=== PATIENT | female | born 1980 ===

== ENCOUNTER 2016-08-09 12:23 | Inpatient (IN) | payer MEDICAID, SELFPAY ==
[~2016-08-09 12:23] MED LIST: Bupivacaine 0.25% 10 ML SDV ONE
[2016-08-09] MEDS ORDERED: Nalbuphine 20 MG/1 ML Amp IVPUSH PRN (12:48)
[2016-08-09] MEDS ORDERED: Sodium Chloride 0.9% 10 ML Syringe FLUSH PRN (12:48)
--- NOTE | 2016-08-09 12:58 | PCM.LDHP ---
L&D History of Present Illness - General Date of Service: 08/09/16 Admit Problem/Dx: Patient Status Order with Admit Dx/Problem 08/09/16 12:48 Patient Status [ADT] Routine Admission Diagnosis/Problem Admission Diagnosis/Problem Rupture of membranes with delay of delivery Source of Information: Patient History Limitations: Reports: No Limitations - History of Present Illness Introduction:: 35-year-old 0-1 SAHRA 08/29/16 at estimated gestational age of 37 weeks 1 day presented to labor and delivery with history of gush of fluid and continued leaking clear fluid since 10:30 AM this morning group B strep negative. Oh negative antibody screen negative initial hemoglobin and hematocrit 12/22/1613.0 /41.4, rubella immune, RPR nonreactive, urine culture mixed armand, and that B surface antigen negative, Chlamydia and GC probe negative on 05/29/17 hemoglobin hematocrit level but 7/34.9 platelets 270,000 program given OB glucose screen 107, group B strep 07/26/16 negative Severity: Mild Pain Score: 2 Improves with: Reports: None Worsens with: Reports: None Associated Symptoms: Reports: N - Related Data Allergies/Adverse Reactions: Allergies Allergy/AdvReac Type Severity Reaction Status Date / Time No Known Allergies Allergy Verified 03/13/15 10:17 Home Medications: Home Meds . [No Known Home Meds] 03/13/15 [History] Past Medical History - Past Health History Medical/Surgical History: Denies Medical/Surgical History : 4 Para: 1 (1021) Social & Family History - Family History Family Medical History: Noncontributory - Tobacco Use Smoking Status *Q: Never Smoker - Recreational Drug Use Recreational Drug Use: No H&P Review of Systems - Review of Systems: Review Of Systems: See Below General: Reports: No Symptoms HEENT: Reports: No Symptoms Pulmonary: Reports: No Symptoms Cardiovascular: Reports: No Symptoms Gastrointestinal: Reports: No Symptoms Genitourinary: Reports: No Symptoms Musculoskeletal: Reports: No Symptoms Skin: Reports: No Symptoms Psychiatric: Reports: No Symptoms Neurological: Reports: No Symptoms Hematologic/Lymphatic: Reports: No Symptoms Immunologic: Reports: No Symptoms L&D Exam - Exam Exam: See Below - Vital Signs Weight: 145 lb - OB Specific Contraction Intensity: Mild Movement: Active Heart Tones: Present Heart Tones per Min: 135 Heart Rate (FHR) Variability: Moderate (6-25 bmp) Presentation: Vertex - Galan Score Galan Score Cervix Position: Posterior Galan Score Consistency: Soft Galan Score Effacement: 0-30% Galan Score Dilation: 1-2 cm Galan Score 's Station: -2 Galan Score Total: 4 - Exam General: Alert, Oriented HEENT: Mucosa Moist & [place] Neck: Supple, Trachea Midline Lungs: Clear to Auscultation, Normal Respiratory Effort Cardiovascular: Regular Rate, Regular Rhythm Abdomen: Normal Bowel Sounds, Soft, Pelvis Stable Genitourinary: Normal external exam Extremities: Normal Inspection Skin: Warm, Dry, Intact Neurological: Reflexes Equal Bilateral Psychiatric: Alert, Normal Affect, Normal Mood - Problem List (1) 37 weeks gestation of SNOMED Code(s): 03057888 ICD Code: Z3A.37 - 37 WEEKS GESTATION OF Status: Acute Current Visit: Yes (2) Premature rupture of membranes (PROM), onset of labor within 24 hours, antepartum SNOMED Code(s): 604912610 ICD Code: O42.019 - PRETRM PABLO ROM, ONSET LABOR W/N 24 HOURS OF RUPT, UNSP TRI Status: Acute Current Visit: Yes Problem List Initiated/Reviewed/Updated: No Orders Last 24hrs: Active Orders 24 hr Category Date Time Status Patient Status [ADT] Routine ADT 08/09/16 12:48 Ordered Activity as Tolerated [RC] PFP Care 08/09/16 12:48 Ordered Communication Order [RC] ASDIRECTED Care 08/09/16 12:48 Ordered Heart Tones [RC] ASDIRECTED Care 08/09/16 12:49 Ordered Height and Weight [RC] UPON Care 08/09/16 12:48 Ordered Notify Provider [RC] PFP Care 08/09/16 12:48 Ordered Notify Provider [RC] PRN Care 08/09/16 12:48 Ordered Peripheral IV Care [RC] . DIRECTED Care 08/09/16 12:49 Ordered Urinary Catheter Assessment [RC] ASDIRECTED Care 08/09/16 12:48 Ordered Vital Signs [RC] PER UNIT ROUTINE Care 08/09/16 12:48 Ordered Clear Liquid Diet [DIET] Diet 08/09/16 Lunch Ordered CBC WITH AUTO DIFF [HEME] Stat Lab 08/09/16 12:48 Ordered TYPE AND SCREEN [BBK] Stat Lab 08/09/16 12:48 Ordered Lactated Ringers [Ringers, Lactated] 1,000 ml Med 08/09/16 13:00 Ordered IV ASDIRECTED Misoprostol [Cytotec] Med 08/09/16 13:00 Ordered 25 mcg PO Q3H Nalbuphine [Nubain] Med 08/09/16 12:48 Ordered 10 mg IVPUSH Q2H PRN Oxytocin/Lactated Ringers [Pitocin in LR 10 Units/1,000 Med 08/09/16 13:00 Ordered ML] 10 unit in 1,000 ml IV ASDIRECTED Oxytocin/Lactated Ringers [Pitocin in LR 10 Units/1,000 Med 08/09/16 13:00 Ordered ML] 10 unit in 1,000 ml IV TITRATE Sodium Chloride 0.9% [Saline Flush] Med 08/09/16 12:48 Ordered 10 ml FLUSH ASDIRECTED PRN Electronic Heart Tones Ext w TOCO [WOMSER] Oth 08/09/16 12:48 Ordered Routine Electronic Heart Tones Internal [WOMSER] Per Unit Ot 08/09/16 12:48 Ordered Routine Peripheral IV Insertion Adult [OM.PC] Routine Oth 08/09/16 12:48 Ordered Resuscitation Status Routine Resus Stat 08/09/16 12:48 Ordered Medication Orders Lactated Ringer's (Ringers, Lactated) 1,000 mls @ 100 mls/hr IV ASDIRECTED CECILIO Oxytocin/Lactated Ringer's (Pitocin In Lr 10 Units/1,000 Ml) 10 unit in 1,000 mls @ 500 mls/hr IV ASDIRECTED CECILIO Misoprostol (Cytotec) 25 mcg PO Q3H CECILIO Stop: 08/09/16 19:01 Nalbuphine HCl (Nubain) 10 mg IVPUSH Q2H PRN PRN Reason: Pain (moderate 4-6) Sodium Chloride (Saline Flush) 10 ml FLUSH ASDIRECTED PRN PRN Reason: Keep Vein Open Assessment/Plan Comment:: estimated gestational age 37 weeks 1 day spontaneous rupture membranes 10:30 AM Sunday08/09/16 Admit for labor and delivery
[2016-08-09] MEDS ORDERED: Oxytocin/Lactated Ringers 10 UNIT/1,000 ML BAG IV SCH ×2 (13:00)
[2016-08-09] MEDS: Misoprostol 25 MCG (1/4 of 100 MCG) Tab PO SCH ×3 (13:29→20:23)
--- NOTE | 2016-08-09 19:16 | PCM.SN ---
- Free Text/Narrative Note: Cervix 2/50/soft/posterior. Vertex now at 0 station. Wanting epidural. Will start Oxytocin rather than third cytotec.
[2016-08-09] MEDS: Lactated Ringers 1,000 ML IV SCH ×3 (19:22→22:22)
[2016-08-09] MEDS ORDERED: diphenhydrAMINE 50 MG/ML SDV IVPUSH PRN (19:41)
[2016-08-09] MEDS ORDERED: fentaNYL 100 MCG/2 ML SDV EPIDUR PRN (19:41)
[2016-08-09] MEDS ORDERED: ePHEDrine 50 MG/ML SDV IVPUSH PRN (19:41)
[2016-08-09] MEDS ORDERED: Bupivacaine/fentaNYL/NS 100 ML Bag EPIDUR SCH (19:45)
--- NOTE | 2016-08-09 20:05 | PCM.PREANE ---
Preanesthetic Assessment - Anesthesia/Transfusion/Family Hx Anesthesia History: Prior Anesthesia Without Reaction Family History of Anesthesia Reaction: No Transfusion History: No Prior Transfusion(s) - Review of Systems General: No Symptoms Pulmonary: No Symptoms Cardiovascular: No Symptoms Gastrointestinal: No symptoms, Vomiting (last week) Neurological: No Symptoms Other: Reports: None, Anxiety (5 years ago) - Physical Assessment O2 Sat by Pulse Oximetry: 97 Respiratory Rate: 18 Vital Signs: Last Vital Signs Temp 99.0 F 08/09/16 12:48 Pulse 120 H 08/09/16 12:48 Resp 18 08/09/16 12:48 BP 134/82 08/09/16 12:48 Pulse Ox 97 08/09/16 12:48 Height: 5 ft 3 in Weight: 76.748 kg ASA Class: 2 Mental Status: Alert & Oriented x3 Airway Class: Mallampati = 1 Dentition: Reports: Normal Dentition Thyro-Mental Finger Breadths: 3 Mouth Opening Finger Breadths: 3 ROM/Head Extension: Full Lungs: Clear to auscultation, Normal respiratory effort Cardiovascular: Regular Rate, Regular Rhythm - Lab Values: Laboratory Last Values WBC 9.70 K/mm3 (3.98-10.04) 08/09/16 13:20 RBC 3.76 M/mm3 (3.98-5.22) L 08/09/16 13:20 Hgb 11.2 gm/L (11.2-15.7) 08/09/16 13:20 Hct 34.4 % (34.1-44.9) 08/09/16 13:20 MCV 91.5 fl (79.4-94.8) 08/09/16 13:20 MCH 29.8 pg (25.6-32.2) 08/09/16 13:20 MCHC 32.6 g/dl (32.2-35.5) 08/09/16 13:20 RDW Std Deviation 45.1 fL (36.4-46.3) 08/09/16 13:20 Plt Count 242 K/mm3 (182-369) 08/09/16 13:20 MPV 12.8 fl (9.4-12.3) H 08/09/16 13:20 Neut % (Auto) 69.4 % (34.0-71.1) 08/09/16 13:20 Lymph % (Auto) 23.4 % (19.3-51.7) 08/09/16 13:20 [place] % (Auto) 5.9 % (4.7-12.5) 08/09/16 13:20 Eos % (Auto) 0.2 (0.7-5.8) L 08/09/16 13:20 Baso % (Auto) 0.1 % (0.1-1.2) 08/09/16 13:20 Neut # (Auto) 6.73 K/mm3 (1.56-6.13) H 08/09/16 13:20 Lymph # (Auto) 2.27 K/mm3 (1.18-3.74) 08/09/16 13:20 [place] # (Auto) 0.57 K/mm3 (0.24-0.36) H 08/09/16 13:20 Eos # (Auto) 0.02 K/mm3 (0.04-0.36) L 08/09/16 13:20 Baso # (Auto) 0.01 K/mm3 (0.01-0.08) 08/09/16 13:20 Blood Type O NEGATIVE 08/09/16 13:20 Gel Antibody Screen Positive 08/09/16 13:20 - Allergies Allergies/Adverse Reactions: Allergies Allergy/AdvReac Type Severity Reaction Status Date / Time No Known Allergies Allergy Verified 08/09/16 19:44 - Blood Blood Available: No - Acknowledgements Anesthesia Type Planned: Epidural Pt an Appropriate Candidate for the Planned Anesthesia: Yes Alternatives and Risks of Anesthesia Discussed w Pt/Guardian: Yes Pt/Guardian Understands and Agrees with Anesthesia Plan: Yes PreAnesthesia Questionnaire - Past Health History Medical/Surgical History: Denies Medical/Surgical History Cardiovascular History: Reports: None Respiratory History: Reports: None Gastrointestinal History: Reports: GERD (with preg) [employer] History: Reports: , Spontaneous , Other (See Below) : 4 (37 weeks) Para: 1 Other OB/BYN History: cyst on ovary - Infectious Disease History Infectious Disease History: Reports: TB - SUBSTANCE USE Smoking Status *Q: Never Smoker Tobacco Use Within Last Twelve Months: No Second Hand Smoke Exposure: No Days Per Week of Alcohol Use: 0 Recreational Drug Use History: No - HOME MEDS Home Medications: Home Meds Pnv No.122/Iron/Folic Acid [ Multi Tablet] 1 each PO DAILY 08/09/16 [ History] - CURRENT (IN HOUSE) MEDS Current Meds: Current Medications Diphenhydramine HCl (Benadryl) 25 mg IVPUSH Q6H PRN PRN Reason: pruritis Ephedrine Sulfate (Ephedrine Sulfate) 5 mg IVPUSH ASDIRECTED PRN PRN Reason: Hypotension Fentanyl (Sublimaze) 100 mcg EPIDUR Q3H PRN PRN Reason: Pain Fentanyl/Bupivacaine HCl (Fentanyl/Bupivacaine/Ns 2 Mcg-0.125% 100 Ml) 100 ml EPIDUR ASDIRECTED CECILIO Lactated Ringer's (Ringers, Lactated) 1,000 mls @ 100 mls/hr IV ASDIRECTED CECILIO Last Admin: 08/09/16 19:22 Dose: 100 mls/hr Oxytocin/Lactated Ringer's (Pitocin In Lr 10 Units/1,000 Ml) 10 unit in 1,000 mls @ 500 mls/hr IV ASDIRECTED CECILIO Oxytocin/Lactated Ringer's (Pitocin In Lr 10 Units/1,000 Ml) 10 unit in 1,000 mls @ 12 mls/hr IV TITRATE CECILIO; 2 MUNITS/MIN PRN Reason: Protocol Nalbuphine HCl (Nubain) 10 mg IVPUSH Q2H PRN PRN Reason: Pain (moderate 4-6) Sodium Chloride (Saline Flush) 10 ml FLUSH ASDIRECTED PRN PRN Reason: Keep Vein Open Discontinued Medications Misoprostol (Cytotec) 25 mcg PO Q3H CECILIO Stop: 08/09/16 19:01 Last Admin: 08/09/16 16:23 Dose: 25 mcg
--- NOTE | 2016-08-10 00:29 | PCM.DEL ---
L & D Note - General Info Date of Service: 08/10/16 - Delivery Note Labor: spontaneous, augmented by oxytocin Delivery Outcome: Livebirth (Female liveborn 08/10/16 00 15 hours JUAN Apgars 7/9 weight 20/8/20 grams/6 pounds 3.5 ounces) Infant Delivery Method: Spontaneous Vaginal Delivery Delivery Mode: Spontaneous Presentation: Right Occiput Anterior (JUAN) Nuchal Cord: None Prep: Povidone-Iodine (Betadine Anesthesia Type: None Amniotic Fluid Description: Clear Episiotomy Type: None Laceration: none Placenta: intact, spontaneous (08/10/16 00 18 hours central cord insertion Bro examined intact and discarded) Cord: 3 vessels Resuscitation Needed: No [place]: Suctioned, Bulb Syringe, Stimulated, Warmed, Golden Used, Warmer Used Provider: Geoff Monique Score 1 min: 7 Score 5 min: 9 - Patient Data Vitals - most recent: Last Vital Signs Temp 99.0 F 08/09/16 12:48 Pulse 120 H 08/09/16 12:48 Resp 18 08/09/16 20:04 BP 134/82 08/09/16 12:48 Pulse Ox 97 08/09/16 20:04 Weight - most recent: 169 lb 3.2 oz Lab Results last 24 hrs: Laboratory Results - last 24 hr 08/09/16 08/09/16 Range/Units 13:20 13:20 WBC 9.70 (3.98-10.04) K/mm3 RBC 3.76 L (3.98-5.22) M/mm3 Hgb 11.2 (11.2-15.7) gm/L Hct 34.4 (34.1-44.9) % MCV 91.5 (79.4-94.8) fl MCH 29.8 (25.6-32.2) pg MCHC 32.6 (32.2-35.5) g/dl RDW Std Deviation 45.1 (36.4-46.3) fL Plt Count 242 (182-369) K/mm3 MPV 12.8 H (9.4-12.3) fl Neut % (Auto) 69.4 (34.0-71.1) % Lymph % (Auto) 23.4 (19.3-51.7) % [place] % (Auto) 5.9 (4.7-12.5) % Eos % (Auto) 0.2 L (0.7-5.8) Baso % (Auto) 0.1 (0.1-1.2) % Neut # (Auto) 6.73 H (1.56-6.13) K/mm3 Lymph # (Auto) 2.27 (1.18-3.74) K/mm3 [place] # (Auto) 0.57 H (0.24-0.36) K/mm3 Eos # (Auto) 0.02 L (0.04-0.36) K/mm3 Baso # (Auto) 0.01 (0.01-0.08) K/mm3 Blood Type O NEGATIVE Gel Antibody Screen Positive Med Orders - Current: Current Medications Diphenhydramine HCl (Benadryl) 25 mg IVPUSH Q6H PRN PRN Reason: pruritis Ephedrine Sulfate (Ephedrine Sulfate) 5 mg IVPUSH ASDIRECTED PRN PRN Reason: Hypotension Fentanyl (Sublimaze) 100 mcg EPIDUR Q3H PRN PRN Reason: Pain Last Admin: 08/09/16 20:06 Dose: 100 mcg Fentanyl/Bupivacaine HCl (Fentanyl/Bupivacaine/Ns 2 Mcg-0.125% 100 Ml) 100 ml EPIDUR ASDIRECTED CECILIO Last Admin: 08/09/16 20:07 Dose: 100 ml Lactated Ringer's (Ringers, Lactated) 1,000 mls @ 100 mls/hr IV ASDIRECTED CECILIO Last Admin: 08/09/16 22:22 Dose: 100 mls/hr Oxytocin/Lactated Ringer's (Pitocin In Lr 10 Units/1,000 Ml) 10 unit in 1,000 mls @ 500 mls/hr IV ASDIRECTED CECILIO Oxytocin/Lactated Ringer's (Pitocin In Lr 10 Units/1,000 Ml) 10 unit in 1,000 mls @ 12 mls/hr IV TITRATE CECILIO; 2 MUNITS/MIN PRN Reason: Protocol Last Titration: 08/09/16 22:25 Dose: 5 munits/min, 30 mls/hr Nalbuphine HCl (Nubain) 10 mg IVPUSH Q2H PRN PRN Reason: Pain (moderate 4-6) Sodium Chloride (Saline Flush) 10 ml FLUSH ASDIRECTED PRN PRN Reason: Keep Vein Open Discontinued Medications Misoprostol (Cytotec) 25 mcg PO Q3H CECILIO Stop: 08/09/16 19:01 Last Admin: 08/09/16 20:23 Dose: Not Given - Problem List & Annotations (1) 37 weeks gestation of SNOMED Code(s): 80495091 Code(s): Z3A.37 - 37 WEEKS GESTATION OF Status: Acute Current Visit: Yes (2) Premature rupture of membranes (PROM), onset of labor within 24 hours, antepartum SNOMED Code(s): 657843445 Code(s): O42.019 - PRETRM PABLO ROM, ONSET LABOR W/N 24 HOURS OF RUPT, UNSP TRI Status: Acute Current Visit: Yes - Problem List Review Problem List Initiated/Reviewed/Updated: No - My Orders Last 24 Hours: My Active Orders 08/09/16 12:48 Patient Status [ADT] Routine Activity as Tolerated [RC] PFP Communication Order [RC] ASDIRECTED Notify Provider [RC] PFP Notify Provider [RC] PRN Urinary Catheter Assessment [RC] ASDIRECTED Vital Signs [RC] PER UNIT ROUTINE Nalbuphine [Nubain] 10 mg IVPUSH Q2H PRN Sodium Chloride 0.9% [Saline Flush] 10 ml FLUSH ASDIRECTED PRN Electronic Heart Tones Ext w TOCO [WOMSER] Routine Electronic Heart Tones Internal [WOMSER] Per Unit Routine Peripheral IV Insertion Adult [OM.PC] Routine Resuscitation Status Routine 08/09/16 12:49 Peripheral IV Care [RC] . DIRECTED 08/09/16 13:00 Lactated Ringers [Ringers, Lactated] 1,000 ml IV ASDIRECTED Oxytocin/Lactated Ringers [Pitocin in LR 10 Units/1,000 ML] 10 unit in 1,000 ml IV ASDIRECTED Oxytocin/Lactated Ringers [Pitocin in LR 10 Units/1,000 ML] 10 unit in 1,000 ml IV TITRATE 08/09/16 13:20 ANTIBODY IDENTIFICATION [BBK] Stat TYPE AND SCREEN [BBK] Stat 08/09/16 14:25 Consult to Cargo Checker [CONS] Routine 08/09/16 Lunch Clear Liquid Diet [DIET] - Plan Plan:: estimated gestational age 37 weeks 1 day spontaneous rupture membranes 10:30 AM Sunday08/09/16 Admit for labor and delivery
[2016-08-10] MEDS ORDERED: Witch Hazel Medicated Pads 100/Jar TOP PRN (00:36)
[2016-08-10] MEDS ORDERED: Benzocaine/Menthol 20%-0.5% Spray 56 GM Canister TOP PRN (00:36)
[2016-08-10] MEDS ORDERED: Docusate Sodium 100 MG Cap PO PRN (00:36)
[2016-08-10] MEDS ORDERED: Acetaminophen 325 MG Tab PO PRN (00:36)
[2016-08-10] MEDS ORDERED: Lanolin 100% Cream 7 GM Tube TOP PRN (00:36)
[2016-08-10] MEDS: Ibuprofen 600 MG Tab PO PRN ×3 (01:36→15:02)
[2016-08-10] MEDS ORDERED: Hydrocortisone 1% Crm 30 GM Tube TOP PRN (15:05)
--- NOTE | 2016-08-11 06:45 | PCM.DCSUM1 ---
Discharge Summary - Hospital Course Free Text/Narrative:: [facility], [place] LIVE L/D Delivery Note Patient Name: EUNICE ALVAREZ Date of : 80 Patient Status: Inpatient Attending Provider: Geoff Monique Date: 08/10/16 00:25 Initialization Date: 08/10/16 00:25 L & D Note - General Info Date of Service: 08/10/16 - Delivery Note Labor: spontaneous, augmented by oxytocin Delivery Outcome: Livebirth (Female liveborn 08/10/16 15 hours JUAN Apgars 7/9 weight 20/8/20 grams/6 pounds 3.5 ounces) Infant Delivery Method: Spontaneous Vaginal Delivery Infant Delivery Mode: Spontaneous Presentation: Right Occiput Anterior (JUAN) Nuchal Cord: None Prep: Povidone-Iodine (Betadine Anesthesia Type: None Amniotic Fluid Description: Clear Episiotomy Type: None Laceration: none Placenta: intact, spontaneous (08/10/16 00 18 hours central cord insertion Bro examined intact and discarded) Cord: 3 vessels Resuscitation Needed: No Herrick: Suctioned, Bulb Syringe, Stimulated, Warmed, [place] Used, Warmer Used Provider: Geoff Monique Score 1 min: 7 Score 5 min: 9 - Patient Data Vitals - most recent: Last Vital Signs Temp 99.0 F 08/09/16 12:48 Pulse 120 H 08/09/16 12:48 Resp 18 08/09/16 20:04 BP 134/82 08/09/16 12:48 Pulse Ox 97 08/09/16 20:04 Weight - most recent: 169 lb 3.2 oz Lab Results last 24 hrs: Laboratory Results - last 24 hr 08/09/16 08/09/16 Range/Units 13:20 13:20 WBC 9.70 (3.98-10.04) K/mm3 RBC 3.76 L (3.98-5.22) M/mm3 Hgb 11.2 (11.2-15.7) gm/L Hct 34.4 (34.1-44.9) % MCV 91.5 (79.4-94.8) fl MCH 29.8 (25.6-32.2) pg MCHC 32.6 (32.2-35.5) g/dl RDW Std Deviation 45.1 (36.4-46.3) fL Plt Count 242 (182-369) K/mm3 MPV 12.8 H (9.4-12.3) fl Neut % (Auto) 69.4 (34.0-71.1) % Lymph % (Auto) 23.4 (19.3-51.7) % [place] % (Auto) 5.9 (4.7-12.5) % Eos % (Auto) 0.2 L (0.7-5.8) Baso % (Auto) 0.1 (0.1-1.2) % Neut # (Auto) 6.73 H (1.56-6.13) K/mm3 Lymph # (Auto) 2.27 (1.18-3.74) K/mm3 [place] # (Auto) 0.57 H (0.24-0.36) K/mm3 Eos # (Auto) 0.02 L (0.04-0.36) K/mm3 Baso # (Auto) 0.01 (0.01-0.08) K/mm3 Blood Type O NEGATIVE Gel Antibody Screen Positive Med Orders - Current: Current Medications Diphenhydramine HCl (Benadryl) 25 mg IVPUSH Q6H PRN PRN Reason: pruritis Ephedrine Sulfate (Ephedrine Sulfate) 5 mg IVPUSH ASDIRECTED PRN PRN Reason: Hypotension Fentanyl (Sublimaze) 100 mcg EPIDUR Q3H PRN PRN Reason: Pain Last Admin: 08/09/16 20:06 Dose: 100 mcg Fentanyl/Bupivacaine HCl (Fentanyl/Bupivacaine/Ns 2 Mcg-0.125% 100 Ml) 100 ml EPIDUR ASDIRECTED CECILIO Last Admin: 08/09/16 20:07 Dose: 100 ml Lactated Ringer's (Ringers, Lactated) 1,000 mls @ 100 mls/hr IV ASDIRECTED CECILIO Last Admin: 08/09/16 22:22 Dose: 100 mls/hr Oxytocin/Lactated Ringer's (Pitocin In Lr 10 Units/1,000 Ml) 10 unit in 1,000 mls @ 500 mls/hr IV ASDIRECTED CECILIO Oxytocin/Lactated Ringer's (Pitocin In Lr 10 Units/1,000 Ml) 10 unit in 1,000 mls @ 12 mls/hr IV TITRATE CECILIO; 2 MUNITS/MIN PRN Reason: Protocol Last Titration: 08/09/16 22:25 Dose: 5 munits/min, 30 mls/hr Nalbuphine HCl (Nubain) 10 mg IVPUSH Q2H PRN PRN Reason: Pain (moderate 4-6) Sodium Chloride (Saline Flush) 10 ml FLUSH ASDIRECTED PRN PRN Reason: Keep Vein Open Discontinued Medications Misoprostol (Cytotec) 25 mcg PO Q3H CECILIO Stop: 08/09/16 19:01 Last Admin: 08/09/16 20:23 Dose: Not Given - Problem List & Annotations (1) 37 weeks gestation of SNOMED Code(s): 41465419 Code(s): Z3A.37 - 37 WEEKS GESTATION OF Status: Acute Current Visit: Yes (2) Premature rupture of membranes (PROM), onset of labor within 24 hours, antepartum SNOMED Code(s): 233633692 Code(s): O42.019 - PRETRM PABLO ROM, ONSET LABOR W/N 24 HOURS OF RUPT, UNSP TRI Status: Acute Current Visit: Yes - Problem List Review Problem List Initiated/Reviewed/Updated: No - My Orders Last 24 Hours: My Active Orders 08/09/16 12:48 Patient Status [ADT] Routine Activity as Tolerated [RC] PFP Communication Order [RC] ASDIRECTED Notify Provider [RC] PFP Notify Provider [RC] PRN Urinary Catheter Assessment [RC] ASDIRECTED Vital Signs [RC] PER UNIT ROUTINE Nalbuphine [Nubain] 10 mg IVPUSH Q2H PRN Sodium Chloride 0.9% [Saline Flush] 10 ml FLUSH ASDIRECTED PRN Electronic Heart Tones Ext w TOCO [WOMSER] Routine Electronic Heart Tones Internal [WOMSER] Per Unit Routine Peripheral IV Insertion Adult [OM.PC] Routine Resuscitation Status Routine 08/09/16 12:49 Peripheral IV Care [RC] . DIRECTED 08/09/16 13:00 Lactated Ringers [Ringers, Lactated] 1,000 ml IV ASDIRECTED Oxytocin/Lactated Ringers [Pitocin in LR 10 Units/1,000 ML] 10 unit in 1,000 ml IV ASDIRECTED Oxytocin/Lactated Ringers [Pitocin in LR 10 Units/1,000 ML] 10 unit in 1,000 ml IV TITRATE 08/09/16 13:20 ANTIBODY IDENTIFICATION [BBK] Stat TYPE AND SCREEN [BBK] Stat 08/09/16 14:25 Consult to Ticket Sales Agent [CONS] Routine 08/09/16 Lunch Clear Liquid Diet [DIET] - Plan Plan:: estimated gestational age 37 weeks 1 day spontaneous rupture membranes 10:30 AM Sunday08/09/16 Admit for labor and delivery HPI Initial Comments: [facility], [place] LIVE L/D Delivery Note Patient Name: EUNICE ALVAREZ Date of : 80 Patient Status: Inpatient Attending Provider: Geoff Monique Date: 08/10/16 00:25 Initialization Date: 08/10/16 00:25 L & D Note - General Info Date of Service: 08/10/16 - Delivery Note Labor: spontaneous, augmented by oxytocin Delivery Outcome: Livebirth (Female liveborn 08/10/16 00 15 hours JUAN Apgars 7/9 weight 20/8/20 grams/6 pounds 3.5 ounces) Delivery Method: Spontaneous Vaginal Delivery Infant Delivery Mode: Spontaneous Presentation: Right Occiput Anterior (JUAN) Nuchal Cord: None Prep: Povidone-Iodine (Betadine Anesthesia Type: None Amniotic Fluid Description: Clear Episiotomy Type: None Laceration: none Placenta: intact, spontaneous (08/10/16 00 18 hours central cord insertion Bro examined intact and discarded) Cord: 3 vessels Resuscitation Needed: No Herrick: Suctioned, Bulb Syringe, Stimulated, Warmed, [place] Used, Warmer Used Provider: Geoff Monique Score 1 min: 7 Score 5 min: 9 - Patient Data Vitals - most recent: Last Vital Signs Temp 99.0 F 08/09/16 12:48 Pulse 120 H 08/09/16 12:48 Resp 18 08/09/16 20:04 BP 134/82 08/09/16 12:48 Pulse Ox 97 08/09/16 20:04 Weight - most recent: 169 lb 3.2 oz Lab Results last 24 hrs: Laboratory Results - last 24 hr 08/09/16 08/09/16 Range/Units 13:20 13:20 WBC 9.70 (3.98-10.04) K/mm3 RBC 3.76 L (3.98-5.22) M/mm3 Hgb 11.2 (11.2-15.7) gm/L Hct 34.4 (34.1-44.9) % MCV 91.5 (79.4-94.8) fl MCH 29.8 (25.6-32.2) pg MCHC 32.6 (32.2-35.5) g/dl RDW Std Deviation 45.1 (36.4-46.3) fL Plt Count 242 (182-369) K/mm3 MPV 12.8 H (9.4-12.3) fl Neut % (Auto) 69.4 (34.0-71.1) % Lymph % (Auto) 23.4 (19.3-51.7) % [place] % (Auto) 5.9 (4.7-12.5) % Eos % (Auto) 0.2 L (0.7-5.8) Baso % (Auto) 0.1 (0.1-1.2) % Neut # (Auto) 6.73 H (1.56-6.13) K/mm3 Lymph # (Auto) 2.27 (1.18-3.74) K/mm3 [place] # (Auto) 0.57 H (0.24-0.36) K/mm3 Eos # (Auto) 0.02 L (0.04-0.36) K/mm3 Baso # (Auto) 0.01 (0.01-0.08) K/mm3 Blood Type O NEGATIVE Gel Antibody Screen Positive Med Orders - Current: Current Medications Diphenhydramine HCl (Benadryl) 25 mg IVPUSH Q6H PRN PRN Reason: pruritis Ephedrine Sulfate (Ephedrine Sulfate) 5 mg IVPUSH ASDIRECTED PRN PRN Reason: Hypotension Fentanyl (Sublimaze) 100 mcg EPIDUR Q3H PRN PRN Reason: Pain Last Admin: 08/09/16 20:06 Dose: 100 mcg Fentanyl/Bupivacaine HCl (Fentanyl/Bupivacaine/Ns 2 Mcg-0.125% 100 Ml) 100 ml EPIDUR ASDIRECTED CECILIO Last Admin: 08/09/16 20:07 Dose: 100 ml Lactated Ringer's (Ringers, Lactated) 1,000 mls @ 100 mls/hr IV ASDIRECTED CECILIO Last Admin: 08/09/16 22:22 Dose: 100 mls/hr Oxytocin/Lactated Ringer's (Pitocin In Lr 10 Units/1,000 Ml) 10 unit in 1,000 mls @ 500 mls/hr IV ASDIRECTED CECILIO Oxytocin/Lactated Ringer's (Pitocin In Lr 10 Units/1,000 Ml) 10 unit in 1,000 mls @ 12 mls/hr IV TITRATE CECILIO; 2 MUNITS/MIN PRN Reason: Protocol Last Titration: 08/09/16 22:25 Dose: 5 munits/min, 30 mls/hr Nalbuphine HCl (Nubain) 10 mg IVPUSH Q2H PRN PRN Reason: Pain (moderate 4-6) Sodium Chloride (Saline Flush) 10 ml FLUSH ASDIRECTED PRN PRN Reason: Keep Vein Open Discontinued Medications Misoprostol (Cytotec) 25 mcg PO Q3H CECILIO Stop: 08/09/16 19:01 Last Admin: 08/09/16 20:23 Dose: Not Given - Problem List & Annotations (1) 37 weeks gestation of SNOMED Code(s): 38167100 Code(s): Z3A.37 - 37 WEEKS GESTATION OF Status: Acute Current Visit: Yes (2) Premature rupture of membranes (PROM), onset of labor within 24 hours, antepartum SNOMED Code(s): 177355630 Code(s): O42.019 - PRETRM PABLO ROM, ONSET LABOR W/N 24 HOURS OF RUPT, UNSP TRI Status: Acute Current Visit: Yes - Problem List Review Problem List Initiated/Reviewed/Updated: No - My Orders Last 24 Hours: My Active Orders 08/09/16 12:48 Patient Status [ADT] Routine Activity as Tolerated [RC] PFP Communication Order [RC] ASDIRECTED Notify Provider [RC] PFP Notify Provider [RC] PRN Urinary Catheter Assessment [RC] ASDIRECTED Vital Signs [RC] PER UNIT ROUTINE Nalbuphine [Nubain] 10 mg IVPUSH Q2H PRN Sodium Chloride 0.9% [Saline Flush] 10 ml FLUSH ASDIRECTED PRN Electronic Heart Tones Ext w TOCO [WOMSER] Routine Electronic Heart Tones Internal [WOMSER] Per Unit Routine Peripheral IV Insertion Adult [OM.PC] Routine Resuscitation Status Routine 08/09/16 12:49 Peripheral IV Care [RC] . DIRECTED 08/09/16 13:00 Lactated Ringers [Ringers, Lactated] 1,000 ml IV ASDIRECTED Oxytocin/Lactated Ringers [Pitocin in LR 10 Units/1,000 ML] 10 unit in 1,000 ml IV ASDIRECTED Oxytocin/Lactated Ringers [Pitocin in LR 10 Units/1,000 ML] 10 unit in 1,000 ml IV TITRATE 08/09/16 13:20 ANTIBODY IDENTIFICATION [BBK] Stat TYPE AND SCREEN [BBK] Stat 08/09/16 14:25 Consult to Ticket Sales Agent [CONS] Routine 08/09/16 Lunch Clear Liquid Diet [DIET] - Plan Plan:: estimated gestational age 37 weeks 1 day spontaneous rupture membranes 10:30 AM Sunday08/09/16 Admit for labor and delivery Brief History: [facility], [place] LIVE . L/D Delivery Note. [facility]: [id number]. Date of : Patient Status: Inpatient. Attending Provider: Geoff Monique Number: [id number]. Date: 08/10/16 00:25Initialization Date: 08/10/16 00:25. L & D Note. - General Info. Date of Service: 08/10/16. - Delivery Note. Labor: spontaneous, augmented by oxytocin. Delivery Outcome: Livebirth (Female liveborn 08/10/16 00 15 hours JUAN Apgars 7/9 weight 20/8/20 grams/6 pounds 3.5 ounces). Infant Delivery Method: Spontaneous Vaginal Delivery. Infant Delivery Mode: Spontaneous. Presentation: Right Occiput Anterior ( JUAN). Nuchal Cord: None. Prep: Povidone-Iodine (Betadine. Anesthesia Type: None. Amniotic Fluid Description: Clear. Episiotomy Type: None. Laceration: none. Placenta: intact, spontaneous (08/10/16 00 18 hours central cord insertion Bro examined intact and discarded). Cord: 3 vessels. Resuscitation Needed: No. Herrick: Suctioned, Bulb Syringe, Stimulated, Warmed , [place] Used, Warmer Used. Provider: Geoff Monique. Score 1 min: 7. Score 5 min: 9. - Patient Data. Vitals - most recent: Last Vital Signs. Temp 99.0 F 08/09/16 12:48. Pulse 120 H 08/09/16 12:48. Resp 18 08/09/16 20:04. BP 134/82 08/09/16 12:48. Pulse Ox 97 08/09/16 20: 04. Weight - most recent: 169 lb 3.2 oz. Lab Results last 24 hrs: Laboratory Results - last 24 hr. 08/09/1705/28/17Range/Units. 13:2013:20. WBC 9.70 (3.98 -10.04) K/mm3. RBC 3.76 L (3.98-5.22) M/mm3. Hgb 11.2 (11.2-15.7) gm/L. Hct 34.4 (34.1-44.9) %. MCV 91.5 (79.4-94.8) fl. MCH 29.8 (25.6-32.2) pg. MCHC 32.6 (32.2-35.5) g/dl. RDW Std Deviation 45.1 (36.4-46.3) fL. Plt Count 242 (182-369) K/mm3. MPV 12.8 H (9.4-12.3) fl. Neut % (Auto) 69.4 ( 34.0-71.1) %. Lymph % (Auto) 23.4 (19.3-51.7) %. [place] % (Auto) 5.9 (4.7-12.5 ) %. Eos % (Auto) 0.2 L (0.7-5.8). Baso % (Auto) 0.1 (0.1-1.2) %. Neut # ( Auto) 6.73 H (1.56-6.13) K/mm3. Lymph # (Auto) 2.27 (1.18-3.74) K/mm3. [place] # (Auto) 0.57 H (0.24-0.36) K/mm3. Eos # (Auto) 0.02 L (0.04-0.36) K/mm3. Baso # (Auto) 0.01 (0.01-0.08) K/mm3. Blood Type O NEGATIVE. Gel Antibody Screen Positive. Med Orders - Current: Current Medications. Diphenhydramine HCl (Benadryl) 25 mg IVPUSH Q6H PRN. PRN Reason: pruritis. Ephedrine Sulfate (Ephedrine Sulfate) 5 mg IVPUSH ASDIRECTED PRN. PRN Reason: Hypotension. Fentanyl (Sublimaze) 100 mcg EPIDUR Q3H PRN. PRN Reason: Pain. Last Admin: 20:06 Dose: 100 mcg. Fentanyl/Bupivacaine HCl (Fentanyl/Bupivacaine/Ns 2 Mcg-0.125% 100 Ml) 100 ml EPIDUR ASDIRECTED CCEILIO. Last Admin: 08/09/16 20:07 Dose: 100 ml. Lactated Ringer's (Ringers, Lactated) 1,000 mls @ 100 mls/hr IV ASDIRECTED CECILIO. Last Admin: 08/09/16 22:22 Dose: 100 mls/hr. Oxytocin/ Lactated Ringer's (Pitocin In Lr 10 Units/1,000 Ml) 10 unit in 1,000 mls @ 500 mls/hr IV ASDIRECTED CECILIO. Oxytocin/Lactated Ringer's (Pitocin In Lr 10 Units/1, 000 Ml) 10 unit in 1,000 mls @ 12 mls/hr IV TITRATE CECILIO; 2 MUNITS/MIN. PRN Reason: Protocol. Last Titration: 08/09/16 22:25 Dose: 5 munits/min, 30 mls/ hr. Nalbuphine HCl (Nubain) 10 mg IVPUSH Q2H PRN. PRN Reason: Pain (moderate 4-6). Sodium Chloride (Saline Flush) 10 ml FLUSH ASDIRECTED PRN. PRN Reason: Keep Vein Open. Discontinued Medications. Misoprostol (Cytotec) 25 mcg PO Q3H CECILIO. Stop: 08/09/16 19:01. Last Admin: 08/09/16 20:23 Dose: Not Given. - Problem List & Annotations. (1) 37 weeks gestation of . SNOMED Code (s): 06185025. Code(s): Z3A.37 - 37 WEEKS GESTATION OF Status: Acute Current Visit: Yes. (2) Premature rupture of membranes (PROM), onset of labor within 24 hours, antepartum. SNOMED Code(s): 566692426. Code(s): O42.019 - PRETRM PABLO ROM, ONSET LABOR W/N 24 HOURS OF RUPT, UNSP TRI Status: Acute Current Visit: Yes. - Problem List Review. Problem List Initiated/ Reviewed/Updated: No. - My Orders. Last 24 Hours: My Active Orders. 12:48. Patient Status [ADT] Routine. Activity as Tolerated [RC] PFP. Communication Order [RC] ASDIRECTED. Notify Provider [RC] PFP. Notify Provider [RC] PRN. Urinary Catheter Assessment [RC] ASDIRECTED. Vital Signs [ RC] PER UNIT ROUTINE. Nalbuphine [Nubain] 10 mg IVPUSH Q2H PRN. Sodium Chloride 0.9% [Saline Flush] 10 ml FLUSH ASDIRECTED PRN. Electronic Heart Tones Ext w TOCO [WOMSER] Routine. Electronic Heart Tones Internal [WOMSER] Per Unit Routine. Peripheral IV Insertion Adult [OM.PC] Routine. Resuscitation Status Routine. 08/09/16 12:49. Peripheral IV Care [RC] . DIRECTED. 08/09/16 13:00. Lactated Ringers [Ringers, Lactated] 1,000 ml IV ASDIRECTED. Oxytocin/Lactated Ringers [Pitocin in LR 10 Units/1,000 ML] 10 unit in 1,000 ml IV ASDIRECTED. Oxytocin/Lactated Ringers [Pitocin in LR 10 Units/1,000 ML] 10 unit in 1,000 ml IV TITRATE. 08/09/16 13:20. ANTIBODY IDENTIFICATION [BBK] Stat. TYPE AND SCREEN [BBK] Stat. 08/09/16 14:25. Consult to Ticket Sales Agent [CONS] Routine. 08/09/16 Lunch. Clear Liquid Diet [ DIET]. - Plan. Plan:: estimated gestational age 37 weeks 1 day spontaneous rupture membranes 10:30 AM Sunday08/09/16. Admit for labor and delivery - Discharge Data Discharge Date: 08/11/16 Discharge Disposition: Home, Self-Care 01 Condition: Good - Discharge Diagnosis/Problem(s) (1) 37 weeks gestation of SNOMED Code(s): 26172708 ICD Code: Z3A.37 - 37 WEEKS GESTATION OF Status: Acute Current Visit: Yes (2) Premature rupture of membranes (PROM), onset of labor within 24 hours, antepartum SNOMED Code(s): 363478878 ICD Code: O42.019 - PRETRM PABLO ROM, ONSET LABOR W/N 24 HOURS OF RUPT, UNSP TRI Status: Acute Current Visit: Yes (3) Hemorrhoids, SNOMED Code(s): 473569718, 079690463 ICD Code: O87.2 - HEMORRHOIDS IN THE PUERPERIUM Status: Acute Current Visit: Yes - Patient Summary/Data Complications: None Consults: Consultations 08/10/16 04:58 Consult to Ticket Sales Agent [CONS] Routine Hospital Course: Uneventful - Patient Instructions Diet: Heart Healthy Diet Driving: Do Not Drive (x48 hrs) Showering/Bathing: June Shower Notify Provider of: Fever, Increased Pain, Swelling and Redness, Drainage, Nausea and/or Vomiting - Discharge Plan Prescriptions/Med Rec: Hydrocortisone/Pramoxine [Proctofoam-Hc 1%-1% Foam] 10 gm RC QID #1 foam Home Medications: Home Meds Pnv No.122/Iron/Folic Acid [ Multi Tablet] 1 each PO DAILY 08/09/16 [ History] Acetaminophen [Tylenol] 650 mg PO Q6H PRN #0 tablet 08/11/16 [Rx] Benzocaine/Menthol [Dermoplast Pain Relief [place]] 1 spray TOP ASDIRECTED PRN #0 canister 08/11/16 [Rx] Docusate Sodium [Colace] 100 mg PO BID PRN #0 cap 08/11/16 [Rx] Hydrocortisone/Pramoxine [Proctofoam-Hc 1%-1% Foam] 10 gm RC QID #1 foam [Rx] Ibuprofen [IJD: Ibuprofen] 200 - 600 mg PO Q6H PRN #0 tablet 08/11/16 [Rx] Witch Edtih [Tucks] 1 pad TOP ASDIRECTED PRN #0 pad 08/11/16 [Rx] Referrals: Geoff Monique MD [Primary Care Provider] - (6 weeks) - Discharge Summary/Plan Comment DC Time >30 min.: No - Patient Data Vitals - Most Recent: Last Vital Signs Temp 98.1 F 08/11/16 02:53 Pulse 63 08/11/16 02:53 Resp 16 08/10/16 21:06 BP 111/67 08/11/16 02:53 Pulse Ox 99 08/11/16 02:53 Weight - Most Recent: 169 lb 3.2 oz I&O - Last 24 hours: Intake & Output 08/10/16 08/10/16 08/11/16 14:59 22:59 06:59 Intake Total 441 120 Balance 441 120 Lab Results - Last 24 hrs: Laboratory Results - last 24 hr 08/10/16 08/10/16 Range/Units 06:55 06:55 WBC 15.92 H (3.98-10.04) K/mm3 RBC 3.39 L (3.98-5.22) M/mm3 Hgb 9.9 L (11.2-15.7) gm/L Hct 30.9 L (34.1-44.9) % MCV 91.2 (79.4-94.8) fl MCH 29.2 (25.6-32.2) pg MCHC 32.0 L (32.2-35.5) g/dl RDW Std Deviation 43.9 (36.4-46.3) fL Plt Count 200 (182-369) K/mm3 MPV 13.3 H (9.4-12.3) fl Neut % (Auto) 72.6 H (34.0-71.1) % Lymph % (Auto) 19.3 (19.3-51.7) % [place] % (Auto) 7.6 (4.7-12.5) % Eos % (Auto) 0.1 L (0.7-5.8) Baso % (Auto) 0.1 (0.1-1.2) % Neut # (Auto) 11.54 H (1.56-6.13) K/mm3 Lymph # (Auto) 3.08 (1.18-3.74) K/mm3 [place] # (Auto) 1.21 H (0.24-0.36) K/mm3 Eos # (Auto) 0.02 L (0.04-0.36) K/mm3 Baso # (Auto) 0.02 (0.01-0.08) K/mm3 Manual Slide Review Normal smear Blood Type O NEGATIVE Gel Antibody Screen Positive Screen 0 ros/5 flds - neg RhIG Candidate? Yes Rhogam Indicated Yes, baby rh pos H Med Orders - Current: Current Medications Acetaminophen (Tylenol) 650 mg PO Q4H PRN PRN Reason: mild pain or fever Benzocaine/Menthol (Dermoplast Pain Relief [place]) 0 gm TOP ASDIRECTED PRN PRN Reason: Perineal Comfort Measure Last Admin: 08/10/16 01:39 Dose: 1 canister Docusate Sodium (Colace) 100 mg PO BID PRN PRN Reason: Constipation Last Admin: 08/10/16 01:36 Dose: 100 mg Emollient Ointment (Lansinoh Hpa) 0 gm TOP ASDIRECTED PRN PRN Reason: Sore Nipples Hydrocortisone (Hydrocortisone 1% Crm) 0 gm TOP ASDIRECTED PRN PRN Reason: Hemorrhoids Ibuprofen (Motrin) 600 mg PO Q4H PRN PRN Reason: Mild pain or fever Last Admin: 08/10/16 15:02 Dose: 600 mg Witch Edith (Tucks) 1 pad TOP ASDIRECTED PRN PRN Reason: Hemorrhoid pain Last Admin: 08/10/16 01:39 Dose: 1 tube Discontinued Medications Diphenhydramine HCl (Benadryl) 25 mg IVPUSH Q6H PRN PRN Reason: pruritis Ephedrine Sulfate (Ephedrine Sulfate) 5 mg IVPUSH ASDIRECTED PRN PRN Reason: Hypotension Fentanyl (Sublimaze) 100 mcg EPIDUR Q3H PRN PRN Reason: Pain Last Admin: 08/09/16 20:06 Dose: 100 mcg Fentanyl/Bupivacaine HCl (Fentanyl/Bupivacaine/Ns 2 Mcg-0.125% 100 Ml) 100 ml EPIDUR ASDIRECTED CECILIO Last Admin: 08/09/16 20:07 Dose: 100 ml Lactated Ringer's (Ringers, Lactated) 1,000 mls @ 100 mls/hr IV ASDIRECTED CECILIO Last Admin: 08/09/16 22:22 Dose: 100 mls/hr Oxytocin/Lactated Ringer's (Pitocin In Lr 10 Units/1,000 Ml) 10 unit in 1,000 mls @ 500 mls/hr IV ASDIRECTED CECILIO Oxytocin/Lactated Ringer's (Pitocin In Lr 10 Units/1,000 Ml) 10 unit in 1,000 mls @ 12 mls/hr IV TITRATE CECILIO; 2 MUNITS/MIN PRN Reason: Protocol Last Titration: 08/09/16 22:25 Dose: 5 munits/min, 30 mls/hr Misoprostol (Cytotec) 25 mcg PO Q3H CECILIO Stop: 08/09/16 19:01 Last Admin: 08/09/16 20:23 Dose: Not Given Nalbuphine HCl (Nubain) 10 mg IVPUSH Q2H PRN PRN Reason: Pain (moderate 4-6) Sodium Chloride (Saline Flush) 10 ml FLUSH ASDIRECTED PRN PRN Reason: Keep Vein Open *Q Meaningful Use (DIS) - VTE *Q VTE Criteria *Q: - Stroke *Q Stroke Criteria *Q: - AMI *Q AMI Criteria *Q:
[2016-08-11 12:21] VITALS: BP 127/76
== END 2016-08-11 11:20 | disposition home or self-care (01) | DRG 775 ==
LOC: JD.OB 12:23 → JD.OBCHECK 12:23 → JD.WOMH 12:23 → JD.OBCHECK 12:26 → JD.OB 12:26 → JD.OBCHECK 12:47 → JD.OB 12:48 → OBSVTOIN 08-10 00:15
PROVIDERS: ADMIT Obstetrics & Gynecology; ATTEND Obstetrics & Gynecology
PROC: 3E0R3CZ (ICD-10-PCS; 2016-08-09)
PROC: 10E0XZZ Delivery of Products of Conception, External Approach (ICD-10-PCS; principal; 2016-08-10)
DX: O42.013 Preterm premature rupture of membranes, onset of labor within 24 hours of rupture, third trimester (principal); O87.2 Hemorrhoids in the puerperium; Z3A.37 37 weeks gestation of pregnancy; Z37.0 Single live birth
CPT/HCPCS: 01967; 36415; 85025; 85461; 86850; 86870; 86900; 86901; A9270-GY; J2590; J2790; J3010; J7120